=== PATIENT | female | born 1995 | race Caucasian/White ===

== ENCOUNTER 2020-09-29 00:06 | Emergency (ER) | payer SELFPAY ==
[~2020-09-29] VITALS: Ht 162.6 cm; Wt 47.2 kg
[2020-09-29] MEDS ORDERED: ONDANSETRON HCL INJ 2MG/ML 2ML 2 MG/ML VIAL IV STA (00:46)
[2020-09-29 00:51] LABS: BASOPHILS % 0.2 % (0.0-1.0); EOSINOPHILS # (AUTO) 0.2 (0.0-0.4); EOSINOPHILS % 3.8 % (0.0-6.0); HEMATOCRIT 37.3 % (34.2-44.1); HEMOGLOBIN 11.7 g/dL (12.0-16.0); LYMPHOCYTES # (AUTO) 0.5 (1.0-3.2); LYMPHOCYTES % 11.3 % (18.0-39.1); MEAN CORPUSCULAR HEMOGLOBIN 28.8 pg (28-32); MEAN CORPUSCULAR HGB CONC 31.4 g/dL (31-35); MEAN CORPUSCULAR VOLUME 91.9 fL (81-99); MONOCYTES # (AUTO) 0.2 (0.2-0.8); MONOCYTES % 4.4 % (4.4-11.3); NEUTROPHILS # (AUTO) 3.9 (2.1-6.9); NEUTROPHILS % 80.1 % (38.7-80.0); PLATELET COUNT 233 x10e3/uL (140-360); RED BLOOD COUNT 4.06 x10e6/uL (3.6-5.1); RED CELL DISTRIBUTION WIDTH 13.1 % (11.7-14.4)
[2020-09-29] MEDS ORDERED: DICYCLOMINE HCL 20 MG/2 ML VIAL IM ONE (01:00)
[2020-09-29 01:03] LABS: AMYLASE 67 U/L (25-125); LIPASE 13 U/L (8-78)
[2020-09-29 01:06] LABS: ALBUMIN 4.4 g/dL (3.5-5.0); ALBUMIN/GLOBULIN RATIO 1.4 (0.8-2.0); ANION GAP 13.1 mmol/L (8-16); CALCIUM 9.4 mg/dL (8.4-10.2); CREATININE, SERUM 0.75 mg/dL (0.57-1.11); POTASSIUM 4.1 mmol/L (3.5-5.1)
[2020-09-29 01:34] LABS: CLARITY,URINE CLEAR (CLEAR); COLOR,URINE YELLOW (YELLOW); KETONES,URINE NEGATIVE (NEGATIVE); LEUKOCYTE ESTERASE ,URINE NEGATIVE (NEGATIVE); NITRITE,URINE NEGATIVE (NEGATIVE); PROTEIN,URINE DIPSTICK NEGATIVE (NEGATIVE); URINE UROBILINOGEN 0.2 mg/dL (0.2 - 1)
[2020-09-29 01:42] LABS: BACTERIA,URINE FEW /HPF; EPITHELIAL CELLS,URINE MODERATE /LPF; RBC,URINE 0-5 /HPF (0-5); WBC,URINE (MAN) 0-5 /HPF (0-5)
== END 2020-09-29 02:30 | disposition home or self-care (01) ==
LOC: ER 00:45
DX: K29.70 Gastritis, unspecified, without bleeding (principal); R10.11 Right upper quadrant pain; R11.10 Vomiting, unspecified
CPT/HCPCS: 36415; 76705; 80053; 81001; 82150; 83690; 84702; 85025; 99283; C9113; J0500; J2405

== ENCOUNTER 2020-11-09 19:09 | Emergency (ER) | payer SELFPAY ==
[~2020-11-09] VITALS: Ht 162.6 cm; Wt 47.2 kg
[2020-11-09] MEDS ORDERED: AFRIN15 ML INH (19:49)
[2020-11-09] MEDS ORDERED: PSEUDOEPHEDRINE30 MG PO (19:49)
== END 2020-11-09 20:10 | disposition home or self-care (01) ==
LOC: FSED 19:40
DX: H83.8X2 Other specified diseases of left inner ear (principal); R09.81 Nasal congestion
CPT/HCPCS: 99282

== ENCOUNTER 2021-03-16 14:27 | Emergency (ER) | payer MEDICARE ==
[~2021-03-16] VITALS: Ht 162.6 cm; Wt 47.2 kg
[~2021-03-16 14:27] MED LIST: AFRIN15 ML INH; PSEUDOEPHEDRINE30 MG PO
== END 2021-03-16 15:13 | disposition home or self-care (01) ==
LOC: ER 15:07
DX: G25.70 Drug induced movement disorder, unspecified (principal); T43.225A Adverse effect of selective serotonin reuptake inhibitors, initial encounter; F41.9 Anxiety disorder, unspecified
CPT/HCPCS: 99282